=== PATIENT | female | born 1975 | race Two or more races ===

== ENCOUNTER 2019-02-28 10:09 | Emergency (ER) | payer MEDICAID, OTHER ==
[~2019-02-28] VITALS: Ht 157.5 cm; Wt 88.0 kg
[~2019-02-28 10:09] MED LIST: ACET325T14 PO; LEVO75TA5 PO
[2019-02-28 10:11] VITALS: BP 159/94
--- NOTE | 2019-02-28 10:27 | NUR ---
TASK RN: NELY COLLIER AT BEDSIDE FOR EVAL. THIS IS A 43 YO FEMALE C/O BILAT SWOLLEN LYMPHNODES WITH A NEW COLDSORE ON HER LIP. PT C/O HAVING A BRIEF EPISODE OF DIZZINESS THIS MORNING THAT HAS SINCE PASSED. PT CURRENTLY DENIES CP, DIZZINESS OR SOB. PT AO X 4. SKIN PWD. REPS EVEN AND UNLABORED. NAD NOTED. EKG APPEARED NSR. FAMILY AT BEDSIDE.
== END 2019-02-28 10:59 | disposition home or self-care (01) ==
LOC: ED 10:45
DX: R55 Syncope and collapse (principal); B00.9 Herpesviral infection, unspecified; I10 Essential (primary) hypertension; E03.9 Hypothyroidism, unspecified
CPT/HCPCS: 93005; 99283